=== PATIENT | male | born 1990 | race Caucasian/White ===

== ENCOUNTER 2017-09-06 06:44 | Emergency (ER) | payer OTHER ==
[~2017-09-06] VITALS: Ht 188 cm; Wt 81.6 kg
[2017-09-06 06:50] VITALS: BP_SYST 132
[2017-09-06] MEDS ORDERED: IBUPROFEN 800 MG TABLET PO ONE (07:00)
[2017-09-06 07:30] VITALS: BP_SYST 132
== END 2017-09-06 07:30 | disposition home or self-care (01) ==
LOC: SED 06:44
DX: S93.402A Sprain of unspecified ligament of left ankle, initial encounter (principal); W51.XXXA Accidental striking against or bumped into by another person, initial encounter; Y93.41 Activity, dancing; Y92.89 Other specified places as the place of occurrence of the external cause; Y99.8 Other external cause status; R03.0 Elevated blood-pressure reading, without diagnosis of hypertension
CPT/HCPCS: 99284